=== PATIENT | female | born 1990 | race Hispanic/Latino ===

== ENCOUNTER 2018-06-30 19:19 | Emergency (ER) | payer MEDICAID | END 2018-06-30 21:10 | disposition home or self-care (01) | LOC: EDH 19:19 | DX: O20.0 Threatened abortion (principal); O9A.212 Injury, poisoning and certain other consequences of external causes complicating pregnancy, second trimester; S39.011A Strain of muscle, fascia and tendon of abdomen, initial encounter; S80.212A Abrasion, left knee, initial encounter; Z79.899 Other long term (current) drug therapy; Z3A.18 18 weeks gestation of pregnancy; W18.39XA Other fall on same level, initial encounter; Y93.89 Activity, other specified; Y92.89 Other specified places as the place of occurrence of the external cause; Y99.8 Other external cause status | CPT/HCPCS: 76805 ==

== ENCOUNTER 2018-08-06 18:36 | Observation (INO) | payer MEDICAID ==
[~2018-08-06] VITALS: Ht 157.5 cm; Wt 95.3 kg
[2018-08-06] MEDS ORDERED: LACTATED RINGERS 1000ML 1,000 ML IV SCH (19:00)
[2018-08-06 19:24] LABS: BILIRUBIN,URINE Negative (NEGATIVE); COLOR,URINE Dark Yellow (YELLOW); GLUCOSE, URINE (UA) Negative (NEGATIVE); KETONES,URINE Trace mg/dL (NEGATIVE); LEUKOCYTE ESTERASE ,URINE Trace (NEGATIVE); NITRATE,URINE Negative (NEGATIVE); OCCULT BLOOD,URINE Negative (NEGATIVE); PH,URINE 6.5 (5.0-8.0); PROTEIN,URINE Trace (NEGATIVE)
[2018-08-06 19:40] LABS: APPEARANCE,URINE SLIGHTLY CLOUDY (CLEAR)
[2018-08-06 19:50] LABS: BACTERIA,URINE Few /HPF (None Seen); RBC,URINE 0-1 /HPF (0-1)
[2018-08-06 19:51] LABS: MUCUS,URINE Moderate LPF (None Seen); SQUAMOUS EPITHELIAL CELL,UR Moderate /HPF (0-2)
== END 2018-08-06 22:00 | disposition home or self-care (01) ==
LOC: EDH 18:36 → LDH 18:37
PROVIDERS: ADMIT Obstetrics & Gynecology; ATTEND Obstetrics & Gynecology
DX: O26.892 Other specified pregnancy related conditions, second trimester (principal); R10.30 Lower abdominal pain, unspecified; Z3A.24 24 weeks gestation of pregnancy
CPT/HCPCS: 76805; 81001; 99285; G0378 ×3; J7120; 96360